=== PATIENT | female | born 2000 | race Caucasian/White ===

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

== ENCOUNTER → 2019-08-31 | Outpatient (CLI) | payer BC ==
--- NOTE | 2019-08-31 15:54 | US ---
EXAMINATION TYPE: US pelvic complete DATE OF EXAM: 08/31/2019 COMPARISON: NONE CLINICAL HISTORY: R10.31 Rt lower Quad Pain. Lt oophorectomy for large mass, mild RLQ pain now, all p rior imaging done at [facility] TECHNIQUE: TA. Transabdominal sonographic images of the pelvis were acquired. Date of LMP: 08/09/2019 EXAM MEASUREMENTS: Uterus: 5.3 x 2.3 x 2.9 cm Endometrial Stripe: 1.2 cm Right Ovary: 2.4 x 2.3 x 2.0 cm Left Ovary: Surgically absent 1. Uterus: Anteverted wnl 2. Endometrium: wnl 3. Right Ovary: small subcentimeter follicles seen, 1.9cm hyperechoic lesion noted 4. Left Ovary: Surgically absent 5. Bilateral Adnexa: wnl 6. Posterior cul-de-sac: wnl Right ovary thought within normal limits. IMPRESSION: No suspicious adnexal masses.
== END | disposition home or self-care (01) ==
LOC: RADUSWWP 15:25
PROVIDERS: ATTEND Family Medicine
DX: R10.31 Right lower quadrant pain (principal)
CPT/HCPCS: 76856

== ENCOUNTER 2019-12-31 23:27 | Emergency (ER) | payer BC ==
[2019-12-31 23:36] VITALS: PULSE 77; RESP 18; TEMP 97.8
[2020-01-01] MEDS ORDERED: SODIUM CHLORIDE 0.9% 1,000 ML IV STA (00:01)
[2020-01-01] MEDS ORDERED: LIDOCAINE 1% INJ 10MG/ML (20 ML MDV) SQ STA (00:18)
[2020-01-01] MEDS ORDERED: DIPH,PERTUS(ACELL)TETVAC-LF 0.5 ML VIAL IM ONE (00:18)
[2020-01-01 00:20] LABS: Basophils % (A) 0 %; Eosinophils # (A) 0.2 k/uL (0-0.7); Eosinophils % (A) 1 %; HCT 38.6 % (34.0-46.0); HGB 13.2 gm/dL (11.4-16.0); Lymphocytes # (A) 1.9 k/uL (1.0-4.8); Lymphocytes % (A) 13 %; MCH 30.2 pg (25.0-35.0); MCHC 34.3 g/dL (31.0-37.0); MCV 88.3 fL (80.0-100.0); Mean Platelet Volume 7.3; Monocytes # (A) 0.6 k/uL (0-1.0); Monocytes % (A) 4 %; Neutrophils # (A) 11.2 k/uL (1.3-7.7); Neutrophils % (A) 80 %; Platelet Count 271 k/uL (150-450); RBC 4.37 m/uL (3.80-5.40); RDW 12.1 % (11.5-15.5)
[2020-01-01 00:22] VITALS: BP 117/66
[2020-01-01 00:29] LABS: Appearance,Urine Clear (Clear); Bilirubin,Urine Negative (Negative); Blood,Urine Negative (Negative); Color,Urine Light Yellow; Glucose,Urine (UA) Negative (Negative); Ketones,Urine Trace (Negative); Leukocyte Esterase,Urine Negative (Negative); Nitrite,Urine Negative (Negative); PH, Urine 5.5 (5.0-8.0); Protein,Urine Negative (Negative); Specific Gravity,Urine 1.012 (1.001-1.035); Urobilinogen,Urine <2.0 mg/dL (<2.0)
[2020-01-01 00:31] LABS: ALT 11 U/L (4-34); AST 23 U/L (14-36); African American GFR (CKD) >90 (>60 ml/min/1.73 sqM); Albumin 4.3 g/dL (3.5-5.0); Alkaline Phosphatase 54 U/L (38-126); Anion Gap 11 mmol/L; Blood Urea Nitrogen 13 mg/dL (7-17); Calcium 9.3 mg/dL (8.4-10.2); Carbon Dioxide 24 mmol/L (22-30); Chloride 102 mmol/L (98-107); Glucose 93 mg/dL (74-99); Non-African American GFR(CKD) >90 (>60 ml/min/1.73 sqM); Potassium 4.1 mmol/L (3.5-5.1); Sodium 137 mmol/L (137-145); Total Bilirubin 0.1 mg/dL (0.2-1.3); Total Protein 7.2 g/dL (6.3-8.2)
--- NOTE | 2020-01-01 01:51 | ED ---
General Adult HPI - General Chief complaint: Syncope Stated complaint: Syncope Time Seen by Provider: 12/31/19 23:41 Source: patient, RN notes reviewed, old records reviewed Mode of arrival: ambulatory Limitations: no limitations - History of Present Illness Initial comments: 19-year-old female patient past medical history significant for left nephrectomy as well as left nephrectomy. Patient had a Wilms tumor removed when she is to result, patient reportedly had a left nephrectomy due to a benign mass approximately 2 years ago. Patient presents ED for chief complaint syncope. Patient reports that she urinated, stood up, felt dizzy, fell down the floor. Patient did hit her chin on the ground. This was witnessed by her boyfriend. Reports that she was unconscious for up to 45 seconds. Upon evaluation patient is denying any acute complaints. Systemic: Pt denies fatigue, fever/chills, rash. Pt denies weakness, night sweats, weight loss. Neuro: Pt denies headache, visual disturbances, syncope or pre-syncope. HEENT: Pt denies ocular discharge or irritation, otalgia, rhinorrhea, pharyngitis or notable lymphadenopathy. Cardiopulmonary: Pt denies chest pain, SOB, heart palpitations, dyspnea on exertion. Abdominal/GI: Pt denies abdominal pain, n/v/d. : Pt denies dysuria, burning w/ urination, frequency/urgency. Denies new onset urinary or bowel incontinence. MSK: Pt denies myalgia, loss of strength or function in extremities. Neuro: Pt denies new onset weakness, paresthesias. - Related Data Home Medications Medication Instructions Recorded Confirmed Cyclobenzaprine [Flexeril] 5 mg PO HS PRN 05/27/18 10/14/18 Ibuprofen [Motrin] 800 mg PO DAILY PRN 05/27/18 10/14/18 Montelukast [Singulair] 10 mg PO HS 05/27/18 10/14/18 Topiramate [Topamax] 25 mg PO DAILY 05/27/18 10/14/18 Albuterol Inhaler [Ventolin Hfa 1 - 2 puff INHALATION RT-Q6H PRN 10/14/18 10/14/18 Inhaler] Amoxicillin 500 mg PO DAILY 10/14/18 10/14/18 EPINEPHrine (Auto Inject) [Epipen] 0.3 mg IM ONCE PRN 10/14/18 10/14/18 Fluticasone Nasal [place] [Flonase 2 spr EA NOSTRIL DAILY PRN 10/14/18 10/14/18 Nasal [place]] Fluticasone/Salmeterol [Advair 1 puff INHALATION RT-BID 10/14/18 10/14/18 250-50 Diskus] Meclizine [Antivert] 12.5 mg PO TID PRN 10/14/18 10/14/18 Sulfamethox-Tmp 800-160Mg [Bactrim 1 tab PO Q12H 10/14/18 10/14/18 DS 800-160 mg] predniSONE [Deltasone] 40 mg PO DAILY 10/14/18 10/14/18 Previous Rx's Medication Instructions Recorded Azithromycin [Zithromax Z-pack] 0 mg PO DIRECTED #1 pack 10/14/18 hydrOXYzine HCL [Atarax] 25 mg PO TID PRN #15 tab 10/14/18 Allergies Allergy/AdvReac Type Severity Reaction Status Date / Time cefdinir [From Omnicef] Allergy Unknown Verified 12/31/19 23:36 Review of Systems ROS Statement: Those systems with pertinent positive or pertinent negative responses have been documented in the HPI. ROS Other: All systems not noted in ROS Statement are negative. Past Medical History Past Medical History: Asthma, Cancer Additional Past Medical History / Comment(s): 2 yrs old cancer History of Any Multi-Drug Resistant Organisms: None Reported Additional Past Surgical History / Comment(s): renal surgery Past Psychological History: No Psychological Hx Reported Smoking Status: Never smoker Past Alcohol Use History: None Reported Past Drug Use History: None Reported General Exam - General Exam Comments Initial Comments: Constitutional: NAD, AOX3, Pt has pleasant affect. HEENT: NC/AT, trachea midline, neck supple, no lymphadenopathy. Posterior pharynx non erythematous, without exudates. External ears appear normal, without discharge. Mucous membranes moist. Eyes PERRLA, EOM intact. There is no scleral icterus. No pallor noted. Cardiopulmonary: RRR, no murmurs, rubs or gallops, no JVD noted. Lungs CTAB in anterior and posterior patten. No peripheral edema. Abdominal exam: Abdomen soft and non-distended. Abdomen non-tender to palpation in all 4 quadrants. Bowel sounds active in LLQ. No hepatosplenomegaly. No ecchymosis Neuro: CN II-XII intact. No nuchal rigidity. No raccon eyes, no alcaraz sign, no hemotympanum. No cervical spinal tenderness. MSK: 3cm laceration anterior chin. Vigorously irrigated approximate 4 simple Sutures. No posterior calf tenderness bilaterally, homans sign negative bilaterally. Posterior tibialis and radial pulse +2 bilaterally. Sensation intact in upper and lower extremities. Full active ROM in upper and lower extremities, 5/5 stregnth. Limitations: no limitations Course Vital Signs 12/31/19 01/01/20 23: 00:21 Temperature 97.8 F Pulse Rate 77 Respiratory 18 Rate Blood Pressure 113/65 Blood Pressure 116/67 [Right Arm Sitting] Blood Pressure 112/62 [Right Arm Standing] Blood Pressure 117/66 [Right Arm Supine] O2 Sat by Pulse 100 Oximetry Medical Decision Making - Medical Decision Making 19-year-old female patient past medical history significant for left nephrectomy as well as left nephrectomy. Patient had a Wilms tumor removed when she is to result, patient reportedly had a left nephrectomy due to a benign mass a pproximately 2 years ago. Patient presents ED for chief complaint syncope. Patient reports that she urinated, stood up, felt dizzy, fell down the floor. Patient did hit her chin on the ground. This was witnessed by her boyfriend. Reports that she was unconscious for up to 45 seconds. Upon evaluation patient is denying any acute complaints. Patient vital signs are stable, afebrile. Physical exam displayed: 3cm laceration anterior chin. Vigorously irrigated approximate 4 simple Sutures. Neurologic exam was within normal limits. EKG is nonischemic. Laboratory investigations were obtained and are non-impressive. Laceration repaired. On repeat evaluation patient complaining of some right TMJ region and jaw pain. Patient is a full active range of motion of jaw, no focal area of tenderness. Able to bite down on a popsicle stick. Patient was offered plain films which she declined these that she'll monitor symptoms. Patient syncope likely orthostatic in nature. Patient discharged to follow up with primary care provider and return to ER physician worsens. Case discussed with Dr. Ha. - Lab Data Result diagrams: 01/01/20 00:10 01/01/20 00:10 Lab Results 01/01/20 01/01/20 01/01/20 Range/Units 00:09 00:09 00:10 WBC 14.0 H (4.0-11.0) k/uL RBC 4.37 (3.80-5.40) m/uL Hgb 13.2 (11.4-16.0) gm/dL Hct 38.6 (34.0-46.0) % MCV 88.3 (80.0-100.0) fL MCH 30.2 (25.0-35.0) pg MCHC 34.3 (31.0-37.0) g/dL RDW 12.1 (11.5-15.5) % Plt Count 271 (150-450) k/uL Neutrophils % 80 % Lymphocytes % 13 % Monocytes % 4 % Eosinophils % 1 % Basophils % 0 % Neutrophils # 11.2 H (1.3-7.7) k/uL Lymphocytes # 1.9 (1.0-4.8) k/uL Monocytes # 0.6 (0-1.0) k/uL Eosinophils # 0.2 (0-0.7) k/uL Basophils # 0.0 (0-0.2) k/uL Sodium (137-145) mmol/L Potassium (3.5-5.1) mmol/L Chloride (98-107) mmol/L Carbon Dioxide (22-30) mmol/L Anion Gap mmol/L BUN (7-17) mg/dL Creatinine (0.52-1.04) mg/dL Est GFR (CKD-EPI)AfAm (>60 ml/min/1.73 sqM) Est GFR (CKD-EPI)NonAf (>60 ml/min/1.73 sqM) Glucose (74-99) mg/dL Calcium (8.4-10.2) mg/dL Total Bilirubin (0.2-1.3) mg/dL AST (14-36) U/L ALT (4-34) U/L Alkaline Phosphatase (38-126) U/L Total Protein (6.3-8.2) g/dL Albumin (3.5-5.0) g/dL Urine Color Light Yellow Urine Appearance Clear (Clear) Urine pH 5.5 (5.0-8.0) Ur Specific [place] 1.012 (1.001-1.035) Urine Protein Negative (Negative) Urine Glucose (UA) Negative (Negative) Urine Ketones Trace H (Negative) Urine Blood Negative (Negative) Urine Nitrite Negative (Negative) Urine Bilirubin Negative (Negative) Urine Urobilinogen <2.0 (<2.0) mg/dL Ur Leukocyte Esterase Negative (Negative) Urine HCG, Qual Not Detected (Not Detectd) 01/01/20 Range/Units 00:10 WBC (4.0-11.0) k/uL RBC (3.80-5.40) m/uL Hgb (11.4-16.0) gm/dL Hct (34.0-46.0) % MCV (80.0-100.0) fL MCH (25.0-35.0) pg MCHC (31.0-37.0) g/dL RDW (11.5-15.5) % Plt Count (150-450) k/uL Neutrophils % % Lymphocytes % % Monocytes % % Eosinophils % % Basophils % % Neutrophils # (1.3-7.7) k/uL Lymphocytes # (1.0-4.8) k/uL Monocytes # (0-1.0) k/uL Eosinophils # (0-0.7) k/uL Basophils # (0-0.2) k/uL Sodium 137 (137-145) mmol/L Potassium 4.1 (3.5-5.1) mmol/L Chloride 102 (98-107) mmol/L Carbon Dioxide 24 (22-30) mmol/L Anion Gap 11 mmol/L BUN 13 (7-17) mg/dL Creatinine 0.58 (0.52-1.04) mg/dL Est GFR (CKD-EPI)AfAm >90 (>60 ml/min/1.73 sqM) Est GFR (CKD-EPI)NonAf >90 (>60 ml/min/1.73 sqM) Glucose 93 (74-99) mg/dL Calcium 9.3 (8.4-10.2) mg/dL Total Bilirubin 0.1 L (0.2-1.3) mg/dL AST 23 (14-36) U/L ALT 11 (4-34) U/L Alkaline Phosphatase 54 (38-126) U/L Total Protein 7.2 (6.3-8.2) g/dL Albumin 4.3 (3.5-5.0) g/dL Urine Color Urine Appearance (Clear) Urine pH (5.0-8.0) Ur Specific [place] (1.001-1.035) Urine Protein (Negative) Urine Glucose (UA) (Negative) Urine Ketones (Negative) Urine Blood (Negative) Urine Nitrite (Negative) Urine Bilirubin (Negative) Urine Urobilinogen (<2.0) mg/dL Ur Leukocyte Esterase (Negative) Urine HCG, Qual (Not Detectd) - EKG Data -: EKG Interpreted by Me (and Dr. Ha) EKG Comments: Ventricular rate 84, W[place] interval 138, QRS 104, QT/QTC 372/439. Normal sinus rhythm, normal EKG, no concern for acute ischemia. Disposition Clinical Impression: Syncope, Laceration Disposition: HOME SELF-CARE Condition: Stable Instructions (If sedation given, give patient instructions): Laceration (ED), Syncope (ED) Additional Instructions: Follow-up with primary care provider tomorrow. Return to ER if condition worsens in any way. Continue To drink lots of water. Please return for suture removal: Hand: 7-10 days Face: 5 days Chest/abdomen: 12-14 days Extremities: 7-10 days Scalp: 7 days Eyebrow: 5-7 days Foot/sole: 12-14 days Please monitor for signs and symptoms of infection including: redness, warmth, drainage, discharge. Please return to ED if these signs or symptoms occur, new signs or symptoms develop or if condition worsens in anyway. Is patient prescribed a controlled substance at d/c from ED?: No Referrals: Maggi Krause MD [Primary Care Provider] - 1-2 days
== END 2020-01-01 02:10 | disposition home or self-care (01) ==
LOC: EC 23:27
DX: S01.81XA Laceration without foreign body of other part of head, initial encounter (principal); R55 Syncope and collapse; J45.909 Unspecified asthma, uncomplicated; Z85.528 Personal history of other malignant neoplasm of kidney; Z90.5 Acquired absence of kidney; Z88.1 Allergy status to other antibiotic agents; Z79.51 Long term (current) use of inhaled steroids; Z79.52 Long term (current) use of systemic steroids; Z79.899 Other long term (current) drug therapy; Z23 Encounter for immunization; W01.0XXA Fall on same level from slipping, tripping and stumbling without subsequent striking against object, initial encounter; Z53.20 Procedure and treatment not carried out because of patient's decision for unspecified reasons
CPT/HCPCS: 99284; 12013; 90471; 36415; 93005; 80053; 85025; 81003; 81025; 90715; J2001

== ENCOUNTER → 2021-12-10 | Outpatient (CLI) | payer BC ==
--- NOTE | 2021-12-10 19:08 | US ---
EXAMINATION TYPE: US pelvic complete DATE OF EXAM: 12/10/2021 COMPARISON: 08/31/2019 CLINICAL HISTORY: 21-year-old female N83.209 HX OF PRIOR LT OVARIAN FIBROMA. Hx left renal cancer. 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 No pain. TECHNIQUE: Transabdominal sonographic images of the pelvis were acquired. Date of LMP: 12/07/2021, G0 FINDINGS: EXAM MEASUREMENTS: Uterus: 5.5 x 2.8 x 2.0 cm Endometrial Stripe: 0.2 cm Right Ovary: 2.7 x 2.0 x 1.5 cm 1. Uterus: Anteverted and otherwise wnl 2. Endometrium: wnl 3. Right Ovary: Normal follicular change. 4. Left Ovary: Surgically absent 5. Bilateral Adnexa: wnl 6. Posterior cul-de-sac: no free fluid IMPRESSION: 1. Left ovary surgically absent. 2. Normal follicular change in the right ovary. No evident adnexal abnormality. 3. Thin endometrial stripe at 2 mm.
== END | disposition home or self-care (01) ==
LOC: RADUSWWP 14:48
PROVIDERS: ATTEND Pediatrics Pediatric Emergency Medicine
DX: Z90.721 Acquired absence of ovaries, unilateral (principal)
CPT/HCPCS: 76856

== ENCOUNTER 2022-05-03 22:49 | Emergency (ER) | payer BC ==
[2022-05-03 23:03] VITALS: RESP 16; TEMP 98.2
[2022-05-03] MEDS ORDERED: SODIUM CHLORIDE 0.9% 1,000 ML IV STA (23:20)
--- NOTE | 2022-05-03 23:20 | ED ---
Alcohol HPI - General Chief Complaint: Alcohol Stated Complaint: ETOH Time Seen by Provider: 05/03/22 22:49 Source: patient, family Mode of arrival: EMS Limitations: no limitations - Related Data Home Medications Medication Instructions Recorded Confirmed Cyclobenzaprine [Flexeril] 5 mg PO HS PRN 05/27/18 10/14/18 Ibuprofen [Motrin] 800 mg PO DAILY PRN 05/27/18 10/14/18 Montelukast [Singulair] 10 mg PO HS 05/27/18 10/14/18 Topiramate [Topamax] 25 mg PO DAILY 05/27/18 10/14/18 Albuterol Inhaler [Ventolin Hfa 1 - 2 puff INHALATION RT-Q6H PRN 10/14/18 10/14/18 Inhaler] Amoxicillin 500 mg PO DAILY 10/14/18 10/14/18 EPINEPHrine (Auto Inject) [Epipen] 0.3 mg IM ONCE PRN 10/14/18 10/14/18 Fluticasone Nasal [place] [Flonase 2 spr EA NOSTRIL DAILY PRN 10/14/18 10/14/18 Nasal [place]] Fluticasone Propion/Salmeterol 1 puff INHALATION RT-BID 10/14/18 10/14/18 [Advair 250-50 Diskus] Meclizine [Antivert] 12.5 mg PO TID PRN 10/14/18 10/14/18 Sulfamethox-Tmp 800-160Mg [Bactrim 1 tab PO Q12H 10/14/18 10/14/18 DS 800-160 mg] predniSONE [Deltasone] 40 mg PO DAILY 10/14/18 10/14/18 Previous Rx's Medication Instructions Recorded Azithromycin [Zithromax Z-pack (6 0 mg PO DIRECTED #1 pack 10/14/18 tabs)] hydrOXYzine HCL [Atarax] 25 mg PO TID PRN #15 tab 10/14/18 Allergies Allergy/AdvReac Type Severity Reaction Status Date / Time cefdinir [From Omnicef] Allergy Unknown Verified 05/03/22 22:58 Review of Systems ROS Statement: Those systems with pertinent positive or pertinent negative responses have been documented in the HPI. ROS Other: All systems not noted in ROS Statement are negative. Past Medical History Past Medical History: Asthma, Cancer Additional Past Medical History / Comment(s): 2 yrs old cancer History of Any Multi-Drug Resistant Organisms: None Reported Additional Past Surgical History / Comment(s): renal surgery. Past Psychological History: No Psychological Hx Reported Smoking Status: Never smoker Past Alcohol Use History: Occasional Past Drug Use History: None Reported General Exam Limitations: no limitations Course Vital Signs 05/03/22 05/03/22 22:58 23:58 Temperature 98.2 F Pulse Rate 99 72 Respiratory 16 16 Rate Blood Pressure 124/89 126/89 O2 Sat by Pulse 98 98 Oximetry Disposition Clinical Impression: Alcoholic intoxication Disposition: HOME SELF-CARE Condition: Good Instructions (If sedation given, give patient instructions): Alcohol Intoxication (ED) Is patient prescribed a controlled substance at d/c from ED?: No Referrals: Maggi Krause MD [Primary Care Provider] - 1-2 days
[2022-05-04 00:49] VITALS: BP 106/69; PULSE 76
== END 2022-05-04 00:48 | disposition home or self-care (01) ==
LOC: EC 22:49
DX: F10.129 Alcohol abuse with intoxication, unspecified (principal); J45.909 Unspecified asthma, uncomplicated; Z88.8 Allergy status to other drugs, medicaments and biological substances; Z79.51 Long term (current) use of inhaled steroids
CPT/HCPCS: 96360; 99284